=== PATIENT | female | born 1955 | race Hispanic/Latino ===

== ENCOUNTER 2018-06-13 20:17 | Observation (INO) | payer SELFPAY ==
[~2018-06-13] VITALS: Ht 160 cm; Wt 94.3 kg
[~2018-06-13 20:17] MED LIST: AMOXICILLIN500 MG PO; ATENOLOL50 MG PO; BENZONATATE200 MG PO; CLARITHROMYC500 MG PO; DOXYCYCL HYC100 MG PO; MUCINEX600 MG PO; NAPROSYN500 MG PO; PREDNISONE10 MG PO; PREDNISONE20 MG PO; PRILOSEC OTC20 MG PO; ULTRAM50 M1 PO; ZITHROMAX250 MG PO
[2018-06-13 21:00] LABS: HEMATOCRIT 41.2 % (37.0-47.0); HEMOGLOBIN 13.8 g/dl (12.0-16.0); IMMATURE GRANULOCYTES 0.3 % (0.0-5.0); MEAN CORPUSCULAR HGB 29.5 pG CALC (26.0-32.0); MEAN CORPUSCULAR HGB CONC 33.5 g/L CALC (32.0-36.0); NEUT# 3.74 thou/uL (2.00-7.15); RED BLOOD COUNT 4.68 mill/uL (4.20-5.60); RED CELL DISTRI WIDTH 13.2 % (11.5-15.5)
[2018-06-13 21:19] LABS: ALBUMIN 4.2 g/dL (3.2-5.0); ALKALINE PHOSPHATASE 142 u/l (38-126); AMYLASE 96 u/l (30-110); ANION GAP 13 (6-22 (CALC)); BILIRUBIN, TOTAL 0.4 mg/dL (0.0-1.4); BUN 18 mg/dL (7-17); BUN/CREATININE RATIO 25 (12-20 (CALC)); CARBON DIOXIDE 30 mmol/l (22-30); CHLORIDE 103 mmol/l (95-108); CREATININE 0.7 mg/dL (0.5-1.0); GFR > 60 ML/MIN (>=60 (CALC)); GFR FOR AFR.AMER. > 60 ML/MIN (>=60 (CALC)); LIPASE 163 u/l (23-300); POTASSIUM 3.7 mmol/l (3.5-5.1); SGOT/AST 24 u/l (14-36); SGPT/ALT 39 u/l (9-52); SODIUM 142 mmol/l (137-146); TOTAL PROTEIN 7.6 g/dL (6.3-8.2)
[2018-06-13 21:30] LABS: MYOGLOBIN 19 ng/mL (0 - 62)
[2018-06-13 22:21] LABS: URINE BILIRUBIN - DIPSTICK NEGATIVE (NEGATIVE); URINE BLOOD DIPSTICK NEGATIVE (NEGATIVE); URINE CLARITY HAZY; URINE COLOR YELLOW; URINE GLUCOSE - DIPSTICK NEGATIVE (NEGATIVE); URINE KETONE 15 mg/dL (NEGATIVE); URINE LEUK ESTERASE NEGATIVE (NEGATIVE); URINE NITRITE - DIPSTICK NEGATIVE (Negative); URINE PH 6.5 (4.5-8.0); URINE PROTEIN - DIPSTICK NEGATIVE (NEG-TRACE); URINE SPECIFIC GRAVITY 1.015; URINE UROBILINOGEN - DIPSTICK 0.2 E.U./dL (0.2)
[2018-06-13] MEDS ORDERED: PRILOSEC20 MG PO (22:29)
[2018-06-13] MEDS ORDERED: TENORMIN PO (22:29)
[2018-06-13] MEDS ORDERED: SYNTHROID75 MCG PO (22:30)
[2018-06-14 02:45] VITALS: BP 164/85
[2018-06-14 07:41] LABS: CHOLESTEROL HDL RATIO 4.5 (<4.4 (CALC))
[2018-06-14 11:00] VITALS: BP 108/71
[2018-06-14] MEDS ORDERED: CARAFATE1 GM PO (12:33)
== END 2018-06-14 13:05 | disposition home or self-care (01) | DRG 392 ==
LOC: ED 20:17 → ED-I 06-14 00:40 → ED 06-14 01:05 → MS2 06-14 01:06
PROVIDERS: Emergency Medicine; Internal Medicine; ADMIT Internal Medicine; ATTEND Internal Medicine
DX: K29.70 Gastritis, unspecified, without bleeding (principal); K21.9 Gastro-esophageal reflux disease without esophagitis; I10 Essential (primary) hypertension; E03.9 Hypothyroidism, unspecified
CPT/HCPCS: G0378; S0164

== ENCOUNTER 2022-09-23 08:17 | Day surgery (SDC) | payer OTHER ==
[~2022-09-23] VITALS: Ht 152.4 cm; Wt 90.7 kg
[~2022-09-23 08:17] MED LIST changes: +CARAFATE1 GM PO; +PRILOSEC20 MG PO; +SYNTHROID75 MCG PO; +TENORMIN PO; +ZESTRIL5 M1 PO
[2022-09-23 10:59] VITALS: BP 147/87
== END 2022-09-23 10:55 | disposition home or self-care (01) | DRG 951 ==
LOC: ENDO 08:17
PROVIDERS: ATTEND Surgery
PROC: 0DJD8ZZ Inspection of Lower Intestinal Tract, Via Natural or Artificial Opening Endoscopic (ICD-10-PCS; principal; 2022-09-23)
DX: Z12.11 Encounter for screening for malignant neoplasm of colon (principal); D17.5 Benign lipomatous neoplasm of intra-abdominal organs; K64.4 Residual hemorrhoidal skin tags; I10 Essential (primary) hypertension; K21.9 Gastro-esophageal reflux disease without esophagitis

== ENCOUNTER 2023-07-03 08:57 | Emergency (ER) | payer OTHER ==
[~2023-07-03] VITALS: Ht 152.4 cm; Wt 81.6 kg
[2023-07-03 09:04] VITALS: BP 174/101
[2023-07-03 09:26] LABS: BASO% 0.3 % (0-3); EOS% 0.9 % (0-8); LYMPH% 25.2 % (15-41); MEAN CELL VOLUME 92.1 fL CALC (80.0-100.0); MEAN CORPUSCULAR HGB 29.2 pG CALC (26.0-32.0); MEAN CORPUSCULAR HGB CONC 31.7 g/dL CAL (32.0-36.0); MONO% 7.9 % (2-13); NEUT# 6.14 thou/uL (2.00-7.15); NEUT% 65.7 % (42-76); RED BLOOD COUNT 5.42 mill/uL (4.20-5.60); RED CELL DISTRI WIDTH 13.9 % (11.5-15.5)
[2023-07-03 09:27] LABS: HEMATOCRIT 49.9 % (37.0-47.0); HEMOGLOBIN 15.8 g/dl (12.0-16.0)
[2023-07-03 09:31] VITALS: BP 175/100
[2023-07-03 09:35] LABS: ALBUMIN 4.5 g/dL (3.2-5.0); ALKALINE PHOSPHATASE 132 u/l (38-126); ANION GAP 14 (6-22 (CALC)); BUN 19 mg/dL (8-23); BUN/CREATININE RATIO 26 (12-20 (CALC)); CARBON DIOXIDE 29 mmol/l (22-30); CHLORIDE 102 mmol/l (95-108); CREATININE 0.7 mg/dL (0.5-1.0); GFR FOR AFR.AMER. > 60 ML/MIN (>=60 (CALC)); GFR OTHER RACES > 60 ML/MIN (>=60 (CALC)); LIPASE 68 u/l (23-300); POTASSIUM 4.2 mmol/l (3.5-5.1); SODIUM 141 mmol/l (137-146); TOTAL PROTEIN 8.4 g/dL (6.3-8.2)
[2023-07-03 09:38] LABS: BILIRUBIN, TOTAL 0.9 mg/dL (0.02-1.3); SGOT/AST 46 u/l (9-36)
[2023-07-03 10:31] VITALS: BP 145/88
[2023-07-03 11:01] VITALS: BP 140/79
[2023-07-03 11:08] LABS: URINE BILIRUBIN - DIPSTICK Negative (NEGATIVE); URINE BLOOD DIPSTICK Moderate (NEGATIVE); URINE GLUCOSE - DIPSTICK Negative (NEGATIVE); URINE KETONE Negative (NEGATIVE); URINE NITRITE - DIPSTICK Negative (Negative); URINE PROTEIN - DIPSTICK Trace mg/dL (NEG-TRACE); URINE UROBILINOGEN - DIPSTICK 0.2 E.U./dL (0.2)
[2023-07-03 11:20] LABS: URINE COLOR Yellow; URINE EPITHELIAL CELLS FEW EPI/hpf (0-FEW); URINE LEUK ESTERASE Small (NEGATIVE)
[2023-07-03 11:21] LABS: URINE BACTERIA FEW hpf
[2023-07-03 11:31] VITALS: BP 127/87
[2023-07-03] MEDS ORDERED: NITROFURANTO100 MG PO (11:38)
[2023-07-03 11:52] VITALS: BP 127/87
== END 2023-07-03 12:00 | disposition home or self-care (01) | DRG 690 ==
LOC: ED 08:57
PROVIDERS: Family Medicine
DX: N39.0 Urinary tract infection, site not specified (principal); I10 Essential (primary) hypertension; E03.9 Hypothyroidism, unspecified; K21.9 Gastro-esophageal reflux disease without esophagitis; Z20.822 Contact with and (suspected) exposure to COVID-19
CPT/HCPCS: Q9967